=== PATIENT | female | born 1990 | race African-American/Black ===

== ENCOUNTER 2017-09-29 12:15 | Emergency (ER) | payer BC ==
[~2017-09-29] VITALS: Ht 180.3 cm; Wt 75.0 kg
[2017-09-29 12:18] VITALS: Ht 180.3 cm; Wt 75.0 kg
[2017-09-29] MEDS ORDERED: TORADOL10 MG PO (13:04)
[2017-09-29 13:23] LABS: BASOPHILS 0.5 % (0-2); EOSINOPHILS 0.1 % (0-7); HEMATOCRIT 35.8 % (36.0-48.0); HEMOGLOBIN 11.9 g/dL (12-16); IMMATURE GRANULOCYTES 0.1 % (0-5); LYMPHOCYTES 17.2 % (15-50); MCH 26.6 pg (26.0-34.0); MCHC 33.2 g/dL (31.0-37.0); MCV 79.9 fL (80.0-100.0); MONOCYTES 4.4 % (2-11); NEUTROPHILS 77.7 % (40-80); PLATELET COUNT 199 10x3/uL (130-400); RBC 4.48 10x6/uL (4.00-5.40); RDW 16.5 % (11.5-14.5); WBC 8.5 10x3/uL (4.8-10.8)
[2017-09-29 13:37] LABS: HCG SERUM NEGATIVE (NEGATIVE)
[2017-09-29 13:42] LABS: ALBUMIN 3.2 g/dL (3.4-5.0); ANION GAP 12.4 mmol/L (8-16); BILIRUBIN - TOTAL 0.64 mg/dL (0.2-1.3); CALCIUM 8.2 mg/dL (8.5-10.1); CARBON DIOXIDE 24.4 mmol/L (21.0-32.0); POTASSIUM - SERUM 3.8 mmol/L (3.5-5.1); PROTEIN - SERUM 6.3 g/dL (6.4-8.2)
[2017-09-29 14:02] VITALS: BP 114/75
== END 2017-09-29 14:03 | disposition home or self-care (01) ==
LOC: D.ER 12:15
PROVIDERS: Emergency Medicine
DX: N94.6 Dysmenorrhea, unspecified (principal); D64.9 Anemia, unspecified; E88.09 Other disorders of plasma-protein metabolism, not elsewhere classified; E87.1 Hypo-osmolality and hyponatremia; R11.2 Nausea with vomiting, unspecified

== ENCOUNTER 2017-10-25 22:37 | Emergency (ER) | payer BC ==
[~2017-10-25] VITALS: Ht 180.3 cm; Wt 79.5 kg
[~2017-10-25 22:37] MED LIST: TORADOL10 MG PO
[2017-10-25 23:16] VITALS: Ht 180.3 cm; Wt 79.5 kg
[2017-10-25 23:48] LABS: BASOPHILS 0.5 % (0-2); EOSINOPHILS 0.4 % (0-7); HEMATOCRIT 34.9 % (36.0-48.0); HEMOGLOBIN 11.6 g/dL (12-16); IMMATURE GRANULOCYTES 0.1 % (0-5); LYMPHOCYTES 24.1 % (15-50); MCHC 33.2 g/dL (31.0-37.0); MCV 81.4 fL (80.0-100.0); MEAN PLATELET VOLUME 9.9 fL (7.4-10.4); MONOCYTES 5.4 % (2-11); NEUTROPHILS 69.5 % (40-80); PLATELET COUNT 210 10x3/uL (130-400); RBC 4.29 10x6/uL (4.00-5.40); RDW 16.5 % (11.5-14.5); WBC 9.8 10x3/uL (4.8-10.8)
[2017-10-25 23:57] LABS: HCG SERUM NEGATIVE (NEGATIVE)
[2017-10-26] MEDS ORDERED: BACTRIM 400-801 TAB PO (00:45)
[2017-10-26] MEDS ORDERED: ROBAXIN500 MG PO (00:45)
[2017-10-26 01:25] VITALS: BP 98/38
== END 2017-10-26 01:20 | disposition home or self-care (01) ==
LOC: D.ER 22:37
PROVIDERS: Emergency Medicine
DX: N94.6 Dysmenorrhea, unspecified (principal); L02.413 Cutaneous abscess of right upper limb

== ENCOUNTER 2018-07-30 22:03 | Emergency (ER) | payer OTHER ==
[~2018-07-30] VITALS: Ht 180.3 cm; Wt 79.6 kg
[~2018-07-30 22:03] MED LIST changes: +BACTRIM 400-801 TAB PO; +ROBAXIN500 MG PO
[2018-07-30 22:08] VITALS: Ht 180.3 cm; Wt 79.6 kg
[2018-07-30 22:54] LABS: HEMATOCRIT 33.5 % (36.0-48.0); HEMOGLOBIN 11.2 g/dL (12-16); MCH 28.1 pg (26.0-34.0); MCHC 33.4 g/dL (31.0-37.0); MEAN PLATELET VOLUME 9.4 fL (7.4-10.4); RBC 3.99 10x6/uL (4.00-5.40); RDW 13.6 % (11.5-14.5); WBC 5.7 10x3/uL (4.8-10.8)
[2018-07-30 23:16] LABS: ALBUMIN 3.5 g/dL (3.4-5.0); ALKALINE PHOSPHATASE 39 U/L (46-116); ALT (SGPT) 14 U/L (10-68); BILIRUBIN - TOTAL 0.42 mg/dL (0.2-1.3); CALC OSMOLALITY 277 mosm/kg (275-300); CALCIUM 8.5 mg/dL (8.5-10.1); CARBON DIOXIDE 28.8 mmol/L (21.0-32.0); CHLORIDE - SERUM 106 mmol/L (98-107); CREATININE - SERUM 0.8 mg/dL (0.6-1.3); GLUCOSE 88 mg/dL (74-106); POTASSIUM - SERUM 3.4 mmol/L (3.5-5.1); PROTEIN - SERUM 6.8 g/dL (6.4-8.2); SODIUM 141 mmol/L (136-145); UREA NITROGEN 8 mg/dL (7-18); eGFR NON AFRICAN AMERICAN > 90 mL/min (90-120)
[2018-07-30 23:22] LABS: PLATELET COUNT 274 10x3/uL (130-400)
[2018-07-30] MEDS ORDERED: ACETAMINOP160 MG/5 M PO (23:26)
[2018-07-30 23:28] LABS: CKMB 0.4 U/L (0.0-3.6); CREATINE KINASE 70 UL (21-215)
[2018-07-30 23:30] LABS: TROPONIN-I < 0.017 ng/mL (0.000-0.060)
[2018-07-30 23:47] VITALS: BP 120/82
[2018-07-30 23:51] LABS: LYMPHOCYTES 49 % (15-50); MONOCYTES 7 % (2-11); NEUTROPHILS 44 % (40-80); PLATELET ESTIMATE NORMAL
== END 2018-07-30 23:35 | disposition home or self-care (01) ==
LOC: D.ER 22:03
PROVIDERS: Emergency Medicine
DX: T23.011A Burn of unspecified degree of right thumb (nail), initial encounter (principal); W86.8XXA Exposure to other electric current, initial encounter; Y93.89 Activity, other specified; Y92.89 Other specified places as the place of occurrence of the external cause; D64.9 Anemia, unspecified